=== PATIENT | female | born 1995 | race Caucasian/White ===

== ENCOUNTER 2016-12-10 10:07 | Emergency (ER) | payer SELFPAY ==
[~2016-12-10] VITALS: Ht 160 cm; Wt 111.1 kg
[2016-12-10 11:10] VITALS: BP 119/81
[2016-12-10] MEDS ORDERED: AMOX1TAB61 PO (11:27)
--- NOTE | 2016-12-10 11:27 | PHYS DOC ---
Adult General Chief Complaint Chief Complaint: SORE THROAT HPI HPI Patient is a 21 year old female presents to the emergency department with a 4 days hx of sore throat. She also states she feels like her right ear needs to pop. She also c/o frontal sinus headache with pressure. She also states in the upper right back of her palate is a krystle area. She denies fever, chills, nausea or vomiting. She also states she is concerned about this as and infection as she works in a [employer]. Review of Systems Review of Systems Constitutional: Denies fever or chills [] Eyes: Denies change in visual acuity, redness, or eye pain [] HENT: Denies nasal congestion C/o sore throat, red area to the back right palate red Respiratory: Denies cough or shortness of breath [] Cardiovascular: No additional information not addressed in HPI [] GI: Denies abdominal pain, nausea, vomiting, bloody stools or diarrhea [] : Denies dysuria or hematuria [] Musculoskeletal: Denies back pain or joint pain [] Integument: Denies rash or skin lesions [] Neurologic: frontal headache, denies focal weakness or sensory changes [] Endocrine: Denies polyuria or polydipsia [] Allergies Allergies Allergies Coded Allergies Type Severity Reaction Last Updated Verified Sulfa (Sulfonamide Antibiotics) Allergy Intermediate HIVES 12/10/16 Yes Physical Exam Physical Exam Constitutional: Well developed, well nourished, no acute distress, non-toxic appearance. [] HENT: Normocephalic, atraumatic, bilateral external ears normal, oropharynx moist, no oral exudates, nose normal. Bilateral TM with out redness, patient does have slight bulging noted. Patient with throat having post nasal drip, No redness, no exudate noted. Patient with red area noted to the upper right palate no abscess noted. Patient with frontal sinus tenderness Eyes: PERRLA, EOMI, conjunctiva normal, no discharge. [] Neck: Normal range of motion, no tenderness, supple, no stridor. [] Cardiovascular:Heart rate regular rhythm, no murmur [] Lungs & Thorax: Bilateral breath sounds clear to auscultation [] Abdomen: Bowel sounds normal, soft, no tenderness, no masses, no pulsatile masses. [] Skin: Warm, dry, no erythema, no rash. [] Extremities: No tenderness, no cyanosis, no clubbing, ROM intact, no edema. [] Neurologic: Alert and oriented X 3, normal motor function, normal sensory function, no focal deficits noted. [] Psychologic: Affect normal, judgement normal, mood normal. [] EKG EKG [] Radiology/Procedures Radiology/Procedures [] Course & Med Decision Making Course & Med Decision Making Pertinent Labs and Imaging studies reviewed. (See chart for details) Patient will be discharged home in stable condition. She will be placed on Augmentin for sinusitis. Recommended plenty of fluids, sudafed and mucinex DM as directed by manufacture over the counter. Patient will be discharged home in stable condition. Signs and symptoms to return to the emergency department has been provided. All questions and concerns have been answered at bedside. [] Dragon Disclaimer Dragon Disclaimer This electronic medical record was generated, in whole or in part, using a voice recognition dictation system. Departure Departure Impression: Primary Impression: Sinusitis Additional Impression: Palate abnormality Disposition: HOME, SELF-CARE Condition: STABLE Patient Instructions: Sinusitis, [id number] Additional Instructions: Activity as tolerated Medication as prescribed Tylenol or Ibuprofen for pain and discomfort Sudafed and Mucinex DM as directed by manufacture over the counter Drink plenty of fluids Warm salt water mouth rinses 4 times a day Followup with your primary care provider in 7-10 days Return to emergency department as needed for signs and symptoms that become worse. Scripts Amoxicillin/Potassium Clav (AUGMENTIN 875-125 TABLET) 1 Each Tablet 1 TAB PO BID, #20 TAB Prov: KELECHI MACIAS APRN 12/10/16 Problem Qualifiers Primary Impression: Sinusitis Sinusitis location: unspecified location Chronicity: unspecified Qualified Codes: J32.9 - Chronic sinusitis, unspecified KELECHI MACIAS APRN Dec 10, 2016 11:27
== END 2016-12-10 11:37 | disposition home or self-care (01) ==
LOC: ER 10:07
DX: J32.1 Chronic frontal sinusitis (principal); K13.79 Other lesions of oral mucosa; Z88.2 Allergy status to sulfonamides
CPT/HCPCS: 99283

== ENCOUNTER 2017-07-29 12:39 | Emergency (ER) | payer SELFPAY ==
[2017-07-29] MEDS: ALPRAZolam 0.5 MG TABLET PO (13:13)
[2017-07-29 13:15] LABS: URINE HCG POC HCG NEGATIVE (Negative)
[2017-07-29 13:46] LABS: BILIRUBIN,URINE NEGATIVE (NEG); CLARITY,URINE CLEAR; COLOR,URINE YELLOW; GLUCOSE,URINE NEGATIVE (NEG); NITRITE,URINE NEGATIVE (NEG); PH,URINE 8.5; PROTEIN,URINE NEGATIVE (NEG-TRACE)
[2017-07-29 13:54] LABS: ADD MAN DIFF? NO
[2017-07-29 13:57] LABS: BASO % 1 % (0-3); EOS # 0.1 x10^3/uL (0.0-0.7); EOS % 2 % (0-3); HEMATOCRIT 39.7 % (36.0-47.0); HEMOGLOBIN 13.7 g/dL (12.0-15.5); LYMPH # 2.3 x10^3/uL (1.0-4.8); LYMPH % 37 % (24-48); MEAN CORPUSCULAR HEMOGLOBIN 30 pg (25-35); MEAN CORPUSCULAR HGB CONC 35 g/dL (31-37); MEAN CORPUSCULAR VOLUME 87 fL (79-100); MONO # 0.5 x10^3/uL (0.0-1.1); MONO % 8 % (0-9); NEUT # 3.2 x10^3uL (1.8-7.7); NEUT % 52 % (31-73); PLATELET COUNT 237 x10^3/uL (140-400); RED BLOOD COUNT 4.56 x10^6/uL (3.50-5.40); RED CELL DISTRIBUTION WIDTH 13.7 % (11.5-14.5); WHITE BLOOD COUNT 6.1 x10^3/uL (4.0-11.0)
[2017-07-29 13:59] LABS: BACTERIA,URINE 0 /HPF (0-FEW); RBC,URINE 0 /HPF (0-2); SQUAMOUS EPITHELIAL CELL,UR MOD /LPF; WBC,URINE 0 /HPF (0-4)
[2017-07-29 14:46] LABS: ANION GAP 7 (6-14); BLOOD UREA NITROGEN 9 mg/dL (7-20); BUN/CREATININE RATIO 13 (6-20); CALCIUM 8.6 mg/dL (8.5-10.1); CARBON DIOXIDE 26 mmol/L (21-32); CHLORIDE 103 mmol/L (98-107); CREATININE 0.7 mg/dL (0.6-1.0); GFR 103.7; GLUCOSE 98 mg/dL (70-99); POTASSIUM 3.7 mmol/L (3.5-5.1); SODIUM 136 mmol/L (136-145)
[2017-07-29 14:47] LABS: D-DIMER < 0.27 ug/mlFEU (0.00-0.50)
[2017-07-29 14:52] LABS: ALBUMIN 3.5 g/dL (3.4-5.0); ALBUMIN/GLOBULIN RATIO 0.9 (1.0-1.7); ALK PHOS 80 U/L (46-116); ALT (SGPT) 68 U/L (14-59); AST (SGOT) 39 U/L (15-37); TOTAL BILIRUBIN 0.5 mg/dL (0.2-1.0); TOTAL PROTEIN 7.5 g/dL (6.4-8.2)
[2017-07-29 14:53] LABS: TROPONINI < 0.017 ng/mL (0.000-0.055)
== END 2017-07-29 15:45 | disposition home or self-care (01) ==
LOC: ER 15:45
DX: F41.9 Anxiety disorder, unspecified (principal); R06.4 Hyperventilation; F32.9 Major depressive disorder, single episode, unspecified; J45.909 Unspecified asthma, uncomplicated; Z88.2 Allergy status to sulfonamides
CPT/HCPCS: 36415; 71046; 80053; 81001; 81025; 84484; 85025; 85379; 93005; 99285-25

== ENCOUNTER 2019-12-31 11:17 | Emergency (ER) | payer SELFPAY ==
[~2019-12-31] VITALS: Ht 160 cm; Wt 123.0 kg
[~2019-12-31 11:17] MED LIST: ALPR0.5T PO; AMOX1TAB61 PO
[2019-12-31 11:51] LABS: BILIRUBIN,URINE NEGATIVE (NEG); CLARITY,URINE CLEAR; COLOR,URINE YELLOW; NITRITE,URINE NEGATIVE (NEG); PROTEIN,URINE NEGATIVE (NEG-TRACE); UROBILINOGEN,URINE 0.2 mg/dL (0.2 mg/dL)
[2019-12-31] MEDS ORDERED: IBUPROFEN 200 MG TABLET. PO ONE (12:00)
--- NOTE | 2019-12-31 12:01 | PHYS DOC ---
Past Medical History Past Medical History: Anxiety, Asthma, Depression Past Surgical History: Other Additional Past Surgical Histo: L groin I&D Smoking Status: Never Smoker Alcohol Use: Occasionally Drug Use: None General Adult EDM: Chief Complaint: VAGINAL BLEEDING HPI: HPI: Patient is a 24 year old female who presents with she states basically over the last year and a half she has had vaginal bleeding almost every day. She states that last month she did not have a period at all. She states this month she began bleeding again around the first of the month and has not stopped. 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 She states right now she is having a light bleeding. She states at times and there is heavier bleeding she has large clots. She states that this month she has noticed that she has an intermittent left groin sharp pain that shoots around to the left lower back. She states intermittent nausea also. She is sexually active. She states she does not currently have a facilities flight check pilot and does not have insurance and so she is having a hard time finding a facilities flight check pilot. She denies any concerns for sexually transmitted diseases. Currently rating her left-sided groin pain a 5 out of 10. She has not taken any medications. She states she does not take any medications daily. Review of Systems: Review of Systems: Constitutional: Denies fever or chills. + Fatigue [] Eyes: Denies change in visual acuity. [] HENT: Denies nasal congestion or sore throat. [] Respiratory: Denies cough or shortness of breath. [] Cardiovascular: Denies chest pain or edema. [] GI: +Left lower pelvic abdominal pain, nausea, vomiting, bloody stools or diarrhea. [] : Denies dysuria. +Vaginal bleeding. [] Musculoskeletal: + Left lower back pain or denies joint pain. [] Integument: Denies rash. [] Neurologic: Denies headache, focal weakness or sensory changes. + Intermittent dizziness [] Endocrine: Denies polyuria or polydipsia. [] Lymphatic: Denies swollen glands. [] Psychiatric: Denies depression or anxiety. [] Heart Score: Risk Factors: Risk Factors: DM, Current or recent (<one month) smoker, HTN, HLP, family history of CAD, obesity. Risk Scores: Score 0 - 3: 2.5% MACE over next 6 weeks - Discharge Home Score 4 - 6: 20.3% MACE over next 6 weeks - Admit for Clinical Observation Score 7 - 10: 72.7% MACE over next 6 weeks - Early Invasive Strategies Allergies: Allergies: Allergies Coded Allergies Type Severity Reaction Last Updated Verified Sulfa (Sulfonamide Antibiotics) Allergy Intermediate HIVES 12/10/16 Yes Physical Exam: PE: Constitutional: Well developed, well nourished, no acute distress, non-toxic appearance. [] HENT: Normocephalic, atraumatic, bilateral external ears normal, oropharynx moist, no oral exudates, nose normal. [] Eyes: PERRLA, EOMI, conjunctiva normal, no discharge. [] Neck: Normal range of motion, no tenderness, supple, no stridor. [] Cardiovascular:Heart rate regular rhythm, no murmur [] Lungs & Thorax: Bilateral breath sounds clear to auscultation [] Abdomen: Bowel sounds normal, soft, no tenderness, no masses, no pulsatile masses. [] Skin: Warm, dry, no erythema, no rash. [] Back: No tenderness, no CVA tenderness. [] Extremities: No tenderness, no cyanosis, no clubbing, ROM intact, no edema. [] Neurologic: Alert and oriented X 3, normal motor function, normal sensory function, no focal deficits noted. [] Psychologic: Affect normal, judgement normal, mood normal. Normal physical exam [] Current Patient Data: Labs: Laboratory Tests Test 12/31/19 11:47 POC Urine HCG, Qualitative Hcg negative (Negative) Vital Signs: Vital Signs Date Time Temp Pulse Resp B/P (MAP) Pulse Ox O2 Delivery O2 Flow Rate FiO2 12/31/19 11:39 99.1 100 18 147/87 (107) 96 Room Air 99.1 EKG: EKG: [] Radiology/Procedures: Radiology/Procedures: [] Impression: [facility] [address] [place] [address] IMAGING REPORT Signed PATIENT: NATALIA WOODWARD ACCOUNT: [id number] : 1995 LOCATION: ER AGE: 24 SEX: F EXAM STATUS: REG ER ORD. PHYSICIAN: KELECHI SU APRN REASON: PELVIC PAIN, VAGINAL BLEEDING PROCEDURE: TRANSVAGINAL TRANSVAGINAL History: Reason: PELVIC PAIN, VAGINAL BLEEDING / Spl. Instructions: / History: Comparison: None. Technique: Grayscale and color Doppler imaging of the pelvis was performed using transvaginal technique. Findings: The uterus measures 9.1 x 4.4 x 3.7 cm. Uterus has an unremarkable appearance. Nabothian cysts. The endometrial stripe measures 17 mm. Right ovary measures 3.9 x 2.1 x 1.9 cm. Left ovary measures 3.7 x 2.2 x 2.2 cm. Normal Doppler flow to the ovaries. No adnexal masses are seen. IMPRESSION: 1. Thickened endometrium depending on phase of menstruation. Recommend further clinical evaluation. 2. Minimal nonspecific fluid within the cervical canal. Electronically signed by: Zackary Crane DO (12/31/2019 1:03 PM) [id number] DICTATED and SIGNED BY: ZACKARY CRANE DO DATE: 12/31/19 1303 [facility] [address] [place] [address] IMAGING REPORT Signed PATIENT: NATALIA WOODWARD ACCOUNT: [id number] : 1995 LOCATION: ER AGE: 24 SEX: F EXAM STATUS: REG ER ORD. PHYSICIAN: KELECHI SU APRN REASON: LEFT LOWER ABD PAIN, RADIATING TO LEFT FLANK PROCEDURE: KUB KUB History: Left lower abdominal pain into the left flank Comparison: None. Findings: 2 supine AP views of the abdomen are submitted. Bowel is not significantly dilated. There is retained stool greater of the right colon. No unusual calcification is identified in the expected course of ureters or renal shadows, right renal shadow poorly seen due to stool. Impression: 1. No calculus is identified in expected course of ureters by radiographs. Electronically signed by: Galindo Chance MD (12/31/2019 2:00 PM) [id number] DICTATED and SIGNED BY: GALINDO CHANCE MD DATE: 12/31/19 1400 Course & Med Decision Making: Course & Med Decision Making Pertinent Labs and Imaging studies reviewed. (See chart for details) See HPI. Alert and oriented x4. Speaks in full clear sentences. Ambulatory with steady gait. Abdomen is soft and nontender. No CVA tenderness. Denies any dysuria symptoms, vomiting, chest pain, shortness of air, fever, palpitations, headache, focal weakness, numbness or tingling, abnormal vaginal discharge. She states that intermittently she will get dizzy and she has had some fatigue lately. 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 Urinalysis does not show infection. Ultrasound of the pelvis shows no acute findings. KUB does not see any kidney stones. Patient will be discharged home to follow-up with gynecology. [] Maguion Disclaimer: Dragon Disclaimer: This electronic medical record was generated, in whole or in part, using a voice recognition dictation system. Departure Departure Impression: Primary Impression: Vaginal bleeding Additional Impression: Bacterial vaginosis Disposition: 01 [place] HOME SELF CARE/HOMELESS Condition: STABLE Referrals: NO PCP (PCP) HAMLET VEGA Jr, MD Patient Instructions: Bacterial Vaginosis, [id number], Dysmenorrhea Additional Instructions: Follow-up with facilities flight check pilot as I have referred you to. Drink plenty of fluids. Take medication as prescribed and with food. Scripts Metronidazole (METRONIDAZOLE) 500 Mg Tablet 1 TAB PO BID for 7 Days, #14 TAB 0 Refills Prov: KELECHI SU APRN 12/31/19 KELECHI SU APRN Dec 31, 2019 12:01
[2019-12-31 12:31] LABS: BASO % 0 % (0-3); EOS # 0.1 x10^3/uL (0.0-0.7); EOS % 1 % (0-3); HEMATOCRIT 37.9 % (36.0-47.0); HEMOGLOBIN 12.8 g/dL (12.0-15.5); LYMPH # 2.1 x10^3/uL (1.0-4.8); LYMPH % 29 % (24-48); MEAN CORPUSCULAR HEMOGLOBIN 29 pg (25-35); MEAN CORPUSCULAR HGB CONC 34 g/dL (31-37); MEAN CORPUSCULAR VOLUME 87 fL (79-100); MONO # 0.5 x10^3/uL (0.0-1.1); MONO % 6 % (0-9); NEUT # 4.5 x10^3/uL (1.8-7.7); NEUT % 63 % (31-73); PLATELET COUNT 229 x10^3/uL (140-400); RED BLOOD COUNT 4.36 x10^6/uL (3.50-5.40); RED CELL DISTRIBUTION WIDTH 13.7 % (11.5-14.5); WHITE BLOOD COUNT 7.2 x10^3/uL (4.0-11.0)
[2019-12-31 12:45] LABS: CALCIUM 8.5 mg/dL (8.5-10.1); CREATININE 0.7 mg/dL (0.6-1.0)
[2019-12-31 12:51] LABS: ALBUMIN 3.5 g/dL (3.4-5.0); ALBUMIN/GLOBULIN RATIO 0.9 (1.0-1.7); PROTHROMBIN TIME PATIENT 12.4 SEC (11.7-14.0); TOTAL BILIRUBIN 0.3 mg/dL (0.2-1.0); TOTAL PROTEIN 7.5 g/dL (6.4-8.2)
--- NOTE | 2019-12-31 13:06 | RAD ---
TRANSVAGINAL History: Reason: PELVIC PAIN, VAGINAL BLEEDING / Spl. Instructions: / History: Comparison: None. Technique: Grayscale and color Doppler imaging of the pelvis was performed using transvaginal technique. Findings: The uterus measures 9.1 x 4.4 x 3.7 cm. Uterus has an unremarkable appearance. Nabothian cysts. The endometrial stripe measures 17 mm. Right ovary measures 3.9 x 2.1 x 1.9 cm. Left ovary measures 3.7 x 2.2 x 2.2 cm. Normal Doppler flow to the ovaries. No adnexal masses are seen. IMPRESSION: 1. Thickened endometrium depending on phase of menstruation. Recommend further clinical evaluation. 2. Minimal nonspecific fluid within the cervical canal. Electronically signed by: Zackary Crane DO (12/31/2019 1:03 PM) [id number]
[2019-12-31 13:38] LABS: BACTERIA,URINE 0 /HPF (0-FEW)
--- NOTE | 2019-12-31 14:03 | RAD ---
KUB History: Left lower abdominal pain into the left flank Comparison: None. Findings: 2 supine AP views of the abdomen are submitted. Bowel is not significantly dilated. There is retained stool greater of the right colon. No unusual calcification is identified in the expected course of ureters or renal shadows, right renal shadow poorly seen due to stool. Impression: 1. No calculus is identified in expected course of ureters by radiographs. Electronically signed by: Eligio Craven MD (12/31/2019 2:00 PM) [facility]
[2019-12-31] MEDS ORDERED: METR-34 PO (14:12)
[2019-12-31 15:15] VITALS: BP 141/82
[2020-01-01 19:11] LABS: GC PROBE Positive (Negative)
== END 2019-12-31 15:15 | disposition home or self-care (01) ==
LOC: ER 11:17
DX: N93.9 Abnormal uterine and vaginal bleeding, unspecified (principal); N76.0 Acute vaginitis; B96.89 Other specified bacterial agents as the cause of diseases classified elsewhere; J45.909 Unspecified asthma, uncomplicated; F41.9 Anxiety disorder, unspecified; F32.9 Major depressive disorder, single episode, unspecified; Z88.2 Allergy status to sulfonamides
CPT/HCPCS: 74018; 76830; 80053; 81001; 81025; 85025; 85610; 87086; 87491; 87591; 99285; Q0111

== ENCOUNTER → 2020-01-02 | Outpatient (CLI) | payer SELFPAY ==
[2019-12-31 15:15] VITALS: BP 141/82
[~2020-01-02] MED LIST changes: +METR-34 PO; +cefTRIAXone IM 250 MG VIAL IM ONE
== END | disposition home or self-care (01) ==
LOC: OPS 13:05
PROVIDERS: ATTEND Clinical Nurse Specialist Family Health
DX: N76.0 Acute vaginitis (principal); B96.89 Other specified bacterial agents as the cause of diseases classified elsewhere; N93.9 Abnormal uterine and vaginal bleeding, unspecified; F41.9 Anxiety disorder, unspecified; F32.9 Major depressive disorder, single episode, unspecified; J45.909 Unspecified asthma, uncomplicated
CPT/HCPCS: 96372; J0696

== ENCOUNTER 2020-08-07 00:22 | Emergency (ER) | payer OTHER ==
[~2020-08-07] VITALS: Ht 160 cm; Wt 120.9 kg
[~2020-08-07 00:22] MED LIST changes: -cefTRIAXone IM 250 MG VIAL IM ONE
--- NOTE | 2020-08-07 01:42 | ED.ADGEN ---
Past Medical History Past Medical History: Anxiety, Asthma, Depression Past Surgical History: Other Additional Past Surgical Histo: L groin I&D Smoking Status: Never Smoker Alcohol Use: Occasionally Drug Use: None General Adult EDM: Chief Complaint: VAGINAL BLEEDING HPI: HPI: Patient is a 25 year old female coming in for bilateral suprapubic pelvic pain that she is a little bit worse in the left and heavy vaginal bleeding for the past 2 days. Patient states she has never a history of heavy periods but states she has been going through a tampon every 30 minutes. Red blood with clots. Denies any past of tissue. Is sexually active but denies any dyspareunia or vaginal discharge. Unsure if she could be , is not currently on contraceptives. States she otherwise has been well. Review of Systems: Review of Systems: All other systems within normal limits except for as noted in the HPI Current Medications: Current Medications Medications (Trade) Dose Ordered Sig/Maeve Start Time Stop Time Status Last Admin Dose Admin Ketorolac Tromethamine (Toradol 15mg Vial) 15 mg 1X ONCE 08/07/20 02:45 08/07/20 02:50 DC Ketorolac Tromethamine (Toradol Im) 60 mg 1X ONCE 08/07/20 03:00 08/07/20 03:01 DC 08/07/20 03:22 60 MG Allergies: Allergies: Allergies Coded Allergies Type Severity Reaction Last Updated Verified Sulfa (Sulfonamide Antibiotics) Allergy Intermediate HIVES 12/10/16 Yes Physical Exam: PE: Constitutional: Well developed, well nourished, no acute distress, non-toxic appearance. [] HENT: Normocephalic, atraumatic, bilateral external ears normal, nose normal. [] Eyes: PERRLA, conjunctiva normal, no discharge. [] Neck: No rigidity, supple, no stridor. [] Cardiovascular: Regular rate and rhythm, brisk cap refill [] Lungs & Thorax: Non labored symmetric respirations, no tachypnea or respiratory distress [] Abdomen: Soft, nondistended, suprapubic and left lower quad abdominal tenderness. Skin: Warm, dry, no erythema, no rash. [] Back: Unremarkable Extremities: No deformities, range of motion grossly intact, no lower extremity edema [] Neurologic: Alert and oriented X 3, no focal deficits noted. [] Psychologic: Affect normal, judgement normal, mood normal. [] Current Patient Data: Labs: Laboratory Tests Test 08/07/20 00:25 08/07/20 03:00 Urine Collection Type Unknown Urine Color Yellow Urine Clarity Clear Urine pH 6.5 (<5.0-8.0) Urine Specific [place] >=1.030 (1.000-1.030) Urine Protein 30 mg/dL (NEG-TRACE) Urine Glucose (UA) Negative mg/dL (NEG) Urine Ketones (Stick) Trace mg/dL (NEG) Urine Blood Large (NEG) Urine Nitrite Negative (NEG) Urine Bilirubin Small (NEG) Urine Urobilinogen Dipstick 1.0 mg/dL (0.2 mg/dL) Urine Leukocyte Esterase Negative (NEG) Urine RBC Tntc /HPF (0-2) Urine WBC 1-4 /HPF (0-4) Urine Squamous Epithelial Cells Few /LPF Urine Bacteria Few /HPF (0-FEW) Urine Mucus Mod /LPF White Blood Count 5.4 x10^3/uL (4.0-11.0) Red Blood Count 3.95 x10^6/uL (3.50-5.40) Hemoglobin 11.1 g/dL (12.0-15.5) L Hematocrit 33.3 % (36.0-47.0) L Mean Corpuscular Volume 84 fL (79-100) Mean Corpuscular Hemoglobin 28 pg (25-35) Mean Corpuscular Hemoglobin Concent 33 g/dL (31-37) Red Cell Distribution Width 15.8 % (11.5-14.5) H Platelet Count 212 x10^3/uL (140-400) Neutrophils (%) (Auto) 48 % (31-73) Lymphocytes (%) (Auto) 41 % (24-48) Monocytes (%) (Auto) 9 % (0-9) Eosinophils (%) (Auto) 1 % (0-3) Basophils (%) (Auto) 1 % (0-3) Neutrophils # (Auto) 2.6 x10^3/uL (1.8-7.7) Lymphocytes # (Auto) 2.2 x10^3/uL (1.0-4.8) Monocytes # (Auto) 0.5 x10^3/uL (0.0-1.1) Eosinophils # (Auto) 0.1 x10^3/uL (0.0-0.7) Basophils # (Auto) 0.0 x10^3/uL (0.0-0.2) Sodium Level 143 mmol/L (136-145) Potassium Level 3.8 mmol/L (3.5-5.1) Chloride Level 108 mmol/L (98-107) H Carbon Dioxide Level 26 mmol/L (21-32) Anion Gap 9 (6-14) Blood Urea Nitrogen 16 mg/dL (7-20) Creatinine 0.8 mg/dL (0.6-1.0) Estimated GFR (Cockcroft-Gault) 86.7 BUN/Creatinine Ratio 20 (6-20) Glucose Level 112 mg/dL (70-99) H Calcium Level 7.7 mg/dL (8.5-10.1) L Total Bilirubin 0.4 mg/dL (0.2-1.0) Aspartate Amino Transferase (AST) 23 U/L (15-37) Alanine Aminotransferase (ALT) 38 U/L (14-59) Alkaline Phosphatase 62 U/L (46-116) Total Protein 6.4 g/dL (6.4-8.2) Albumin 3.3 g/dL (3.4-5.0) L Albumin/Globulin Ratio 1.1 (1.0-1.7) Laboratory Tests 08/07/20 03:00 Laboratory Tests 08/07/20 03:00 Microbiology 08/07/20 Wet Prep - Final, Complete -- RUN DATE: 08/07/20 [facility] *LIVE* PAGE 1 RUN TIME: 526 Specimen Inquiry PATIENT: NATALIA WOODWARD ACCT: [id number] LOC: [place] U: [id number] AGE/SX: 25/ ROOM: RE08/07/[address]: DAGO TAYLOR MD : 1995 BED: DIS: STATUS: DEP ER TLOC: SPEC #: [id number] DAVID: 08/07/20 STATUS: COMP REQ #: [id number] RECD: 08/07/20 [facility] DR: DAGO TAYLOR MD SOURCE: VAGINAL ENTR: 08/07/[address]: LUCI CHILD SPDESC: ORDERED: WET PREP COMMENTS: Has specimen been collected/obtained? Y Procedure Result WET PREP Final YEAST NONE SEEN TRICHOMONAS NONE SEEN CLUE CELLS NONE SEEN RBCS MANY SQUAMOUS EPS FEW Vital Signs: Vital Signs Date Time Temp Pulse Resp B/P (MAP) Pulse Ox O2 Delivery O2 Flow Rate FiO2 08/07/20 04:26 80 116/69 (85) 96 Room Air 08/07/20 00:25 98.6 20 98.6 EKG: EKG: [] Heart Score: C/O Chest Pain: No Risk Factors: Risk Factors: DM, Current or recent (<one month) smoker, HTN, HLP, family hi story of CAD, obesity. Risk Scores: Score 0 - 3: 2.5% MACE over next 6 weeks - Discharge Home Score 4 - 6: 20.3% MACE over next 6 weeks - Admit for Clinical Observation Score 7 - 10: 72.7% MACE over next 6 weeks - Early Invasive Strategies Radiology/Procedures: Radiology/Procedures: Transvaginal some pelvis HISTORY: Pelvic pain and heavy bleeding Transvaginal sonographic examination of the pelvis was performed and multiple static images were obtained. The uterus measures 10.1 x 5.4 0.3 cm. The endometrium is homogeneous measures 1.3 cm in thickness. The ovaries appear normal normal blood flow. The right ovary measures 3.7 x 2.2 x 2.1 cm. The left ovary measures 2.6 x 2.5 x 2.2 cm. IMPRESSION: There is a somewhat enlarged and the endometrium is thickened. No other findings. [] Course & Med Decision Making: Course & Med Decision Making Pertinent Labs and Imaging studies reviewed. (See chart for details) [] Dragon Disclaimer: Dragon Disclaimer: This electronic medical record was generated, in whole or in part, using a voice recognition dictation system. Departure Departure Impression: Primary Impression: Vaginal bleeding Disposition: HOME / SELF CARE / HOMELESS Condition: STABLE Referrals: NO PCP (PCP) COTY OSEI MD Patient Instructions: Menorrhagia Scripts Ibuprofen (IBUPROFEN) 800 Mg Tablet 800 MG PO PRN Q8HRS PRN for PAIN for 10 Days, #20 TAB Prov: DAGO TAYLOR MD 08/07/20 DAGO TAYLOR MD August 07, 2020 01:42
[2020-08-07 01:46] LABS: BILIRUBIN,URINE SMALL (NEG); CLARITY,URINE CLEAR; COLOR,URINE YELLOW; NITRITE,URINE NEGATIVE (NEG); PH,URINE 6.5 (<5.0-8.0); PROTEIN,URINE 30 mg/dL (NEG-TRACE)
[2020-08-07 02:01] LABS: BACTERIA,URINE FEW /HPF (0-FEW); RBC,URINE TNTC /HPF (0-2)
--- NOTE | 2020-08-07 02:26 | RAD ---
Transvaginal some pelvis HISTORY: Pelvic pain and heavy bleeding Transvaginal sonographic examination of the pelvis was performed and multiple static images were obta ined. The uterus measures 10.1 x 5.4 0.3 cm. The endometrium is homogeneous measures 1.3 cm in thickness. T he ovaries appear normal normal blood flow. The right ovary measures 3.7 x 2.2 x 2.1 cm. The left ova ry measures 2.6 x 2.5 x 2.2 cm. IMPRESSION: There is a somewhat enlarged and the endometrium is thickened. No other findings. Electronically signed by: Benedict Jernigan III, MD (08/07/2020 2:23 AM) [facility]
[2020-08-07] MEDS ORDERED: KETOROLAC 15 MG/ML VIAL. IVP ONE (02:45)
[2020-08-07] MEDS ORDERED: KETOROLAC 60 MG/2 ML VIAL. IM ONE (03:00)
[2020-08-07 03:18] LABS: BASO % 1 % (0-3); EOS # 0.1 x10^3/uL (0.0-0.7); EOS % 1 % (0-3); HEMATOCRIT 33.3 % (36.0-47.0); HEMOGLOBIN 11.1 g/dL (12.0-15.5); LYMPH # 2.2 x10^3/uL (1.0-4.8); LYMPH % 41 % (24-48); MEAN CORPUSCULAR HEMOGLOBIN 28 pg (25-35); MEAN CORPUSCULAR HGB CONC 33 g/dL (31-37); MEAN CORPUSCULAR VOLUME 84 fL (79-100); MONO # 0.5 x10^3/uL (0.0-1.1); MONO % 9 % (0-9); NEUT # 2.6 x10^3/uL (1.8-7.7); NEUT % 48 % (31-73); PLATELET COUNT 212 x10^3/uL (140-400); RED BLOOD COUNT 3.95 x10^6/uL (3.50-5.40); RED CELL DISTRIBUTION WIDTH 15.8 % (11.5-14.5); WHITE BLOOD COUNT 5.4 x10^3/uL (4.0-11.0)
[2020-08-07 03:34] LABS: CALCIUM 7.7 mg/dL (8.5-10.1); CREATININE 0.8 mg/dL (0.6-1.0); GFR 86.7; POTASSIUM 3.8 mmol/L (3.5-5.1)
[2020-08-07 03:44] LABS: ALBUMIN 3.3 g/dL (3.4-5.0); ALBUMIN/GLOBULIN RATIO 1.1 (1.0-1.7); TOTAL BILIRUBIN 0.4 mg/dL (0.2-1.0); TOTAL PROTEIN 6.4 g/dL (6.4-8.2)
[2020-08-07 04:26] VITALS: BP 116/69
[2020-08-07] MEDS ORDERED: IBUP-1060 PO (04:34)
== END 2020-08-07 04:45 | disposition home or self-care (01) ==
LOC: ER 00:22
DX: N93.9 Abnormal uterine and vaginal bleeding, unspecified (principal); R10.2 Pelvic and perineal pain; J45.909 Unspecified asthma, uncomplicated; F32.9 Major depressive disorder, single episode, unspecified; F41.9 Anxiety disorder, unspecified; Z88.2 Allergy status to sulfonamides
CPT/HCPCS: 76830; 80053; 81001; 85025; 87491; 87591; 96372; 99284; J1885; Q0111